=== PATIENT | male | born 1985 | race Caucasian/White ===

== ENCOUNTER 2016-12-11 19:07 | Emergency (ER) | payer OTHER ==
[~2016-12-11] VITALS: Ht 180.3 cm; Wt 77.3 kg
[~2016-12-11 19:07] MED LIST: NO HOME MEDICATIONS
[2016-12-11 19:10] VITALS: TEMP 97.8
[2016-12-11] MEDS ORDERED: PERCOCET 325 MG1 TA2 PO (20:32)
[2016-12-11 20:46] VITALS: BP 122/72; PULSE 65
== END 2016-12-11 20:46 | disposition home or self-care (01) ==
LOC: COL.ER 19:07
DX: T15.02XA Foreign body in cornea, left eye, initial encounter (principal); X58.XXXA Exposure to other specified factors, initial encounter; Y92.008 Other place in unspecified non-institutional (private) residence as the place of occurrence of the external cause; Z23 Encounter for immunization